=== PATIENT | female | born 1970 | race Caucasian/White ===

== ENCOUNTER 2020-12-02 11:56 | Inpatient (IN) ==
[2020-12-02] MEDS ORDERED: SODIUM CHLORIDE 0.9% 1,000 ML IV STA (13:03)
[2020-12-02 13:39] LABS: Hematocrit 44.2 VOL% (35.7-47.0); Hemoglobin 14.1 GM/DL (12.0-16.0); Lymphocytes # 0.3 10*3/uL (1.4-4.0); Lymphocytes % 18.7 % (21.3-54.2); Mean Corpuscular HGB Conc 31.9 GM/DL (32-36); Mean Corpuscular Volume 85.8 FL (87-102); Mean Platelet Volume 10.3 FL (9.6-12.0); Neutrophils % 72.3 % (38.7-73.9); Platelet Count 105 T/CUMM (130-400); Red Blood Count 5.15 MC/CUMM (3.8-5.5); Red Cell Distribution Width 13.6 % (9.3-17.3); White Blood Count 1.7 T/CUMM (4-12)
[2020-12-02 14:06] LABS: Albumin 3.6 G/DL (3.4-5.0); Bilirubin,Total 0.4 MG/DL (0.20-1.00); Calcium 8.4 MG/DL (8.5-10.1); Ferritin 424.5 ng/ml (8-252); Potassium 3.7 MMOL/L (3.5-5.1); Total Protein 7.7 G/DL (6.4-8.2)
[2020-12-02 14:49] LABS: Bacteria,Urine Occasional /HPF (Few); Bilirubin,Urine Negative (Negative); Blood, Urine Small mg/dL (Negative); Glucose,Urine (UA) Negative (Negative); Ketones,Urine Negative (Negative); Nitrite,Urine Negative (Negative); Protein,Urine Negative; RBC,Urine 2 /HPF (0-4); Squamous Epithelial Cell,Urine Occasional /HPF (0-10); Urine Appearance CLEAR (Clear); Urine Color Yellow (Yellow); Urine Specific Gravity 1.005 (1.001-1.035); Urine Urobilinogen < 2.0 EU/DL (0.2-1.0)
[2020-12-02] MEDS ORDERED: ONDANSETRON 4 MG/2 ML VIAL IV PRN (15:09)
[2020-12-02] MEDS: AZITHROMYCIN INJ 500 MG in SODIUM CHLORIDE 0.9% 250 ML IV SCH (18:08)
[2020-12-02] MEDS: ENOXAPARIN 40 MG/0.4 ML SYRINGE SUBCUT SCH (18:09)
[2020-12-02] MEDS: ACETAMINOPHEN 325 MG TABLET PO PRN (18:10)
[2020-12-02] MEDS: FAMOTIDINE 20 MG TABLET PO SCH (20:55)
[2020-12-02] MEDS: DOCUSATE SODIUM 100 MG CAPSULE PO SCH (20:55)
[2020-12-02] MEDS ORDERED: CITALOPRAM 20 MG TABLET PO SCH (21:00)
[2020-12-03] MEDS: THYROID 60 MG TABLET PO SCH (06:19)
[2020-12-03] MEDS: ENOXAPARIN 40 MG/0.4 ML SYRINGE SUBCUT SCH ×2 (06:19→18:51)
[2020-12-03 06:44] LABS: Basophils % 0.6 % (0.0-0.8); Hematocrit 40.4 VOL% (35.7-47.0); Hemoglobin 12.8 GM/DL (12.0-16.0); Lymphocytes # 0.6 10*3/uL (1.4-4.0); Mean Corpuscular HGB Conc 31.7 GM/DL (32-36); Mean Corpuscular Volume 86.1 FL (87-102); Mean Platelet Volume 10.8 FL (9.6-12.0); Neutrophils % 53.4 % (38.7-73.9); Platelet Count 95 T/CUMM (130-400); Red Blood Count 4.69 MC/CUMM (3.8-5.5); Red Cell Distribution Width 13.7 % (9.3-17.3); White Blood Count 1.6 T/CUMM (4-12)
[2020-12-03 07:13] LABS: Albumin 3.1 G/DL (3.4-5.0); Bilirubin,Total 0.5 MG/DL (0.20-1.00); Calcium 8.1 MG/DL (8.5-10.1); Osmolality,Calculated 271.7 MOS/KG (273-304); Potassium 3.9 MMOL/L (3.5-5.1); Total Protein 6.8 G/DL (6.4-8.2)
[2020-12-03 07:19] LABS: Band Neutrophils 2 % (0-10); Lymphocytes 36 % (20-55); Platelet Estimate Decreased; Segmented Neutrophils 52 % (50-85); Total Cells Counted 100
[2020-12-03 07:20] LABS: Atypical Lymphocytes Few; Reactive Lymphocytes Few
[2020-12-03] MEDS: DOCUSATE SODIUM 100 MG CAPSULE PO SCH ×2 (08:15→21:08)
[2020-12-03] MEDS: FAMOTIDINE 20 MG TABLET PO SCH ×2 (08:21→21:07)
[2020-12-03] MEDS: CETIRIZINE 10 MG TABLET PO SCH (08:21)
[2020-12-03] MEDS ORDERED: PANTOPRAZOLE 40 MG TABLET PO SCH (09:00)
[2020-12-03] MEDS ORDERED: ALBUTEROL 2.5 MG/3 ML NEB RESP TX SCH (11:00)
[2020-12-03] MEDS: OSELTAMIVIR 75 MG CAPSULE PO SCH ×2 (11:29→21:08)
[2020-12-03] MEDS: BENZONATATE 100 MG CAPSULE PO PRN (15:40)
[2020-12-03] MEDS: ACETAMINOPHEN 325 MG TABLET PO PRN (15:40)
[2020-12-03] MEDS: DEXAMETHASONE 4 MG/1 ML VIAL IV SCH (16:32)
[2020-12-03] MEDS: CITALOPRAM 20 MG TABLET PO SCH (16:32)
[2020-12-03] MEDS: ALBUTEROL INHALER 18 GM INH SCH ×2 (18:49→21:07)
[2020-12-03] MEDS: AZITHROMYCIN INJ 500 MG in SODIUM CHLORIDE 0.9% 250 ML IV SCH (18:50)
[2020-12-04] MEDS: ALBUTEROL INHALER 18 GM INH SCH ×4 (00:30→21:14)
[2020-12-04 05:16] LABS: Hematocrit 40.7 VOL% (35.7-47.0); Hemoglobin 13.1 GM/DL (12.0-16.0); Lymphocytes # 0.3 10*3/uL (1.4-4.0); Lymphocytes % 23.1 % (21.3-54.2); Mean Corpuscular HGB Conc 32.2 GM/DL (32-36); Mean Corpuscular Volume 85.7 FL (87-102); Mean Platelet Volume 10.5 FL (9.6-12.0); Monocytes % 10.5 % (1.7-12.7); Neutrophils % 66.4 % (38.7-73.9); Platelet Count 103 T/CUMM (130-400); Red Blood Count 4.75 MC/CUMM (3.8-5.5); Red Cell Distribution Width 13.4 % (9.3-17.3); White Blood Count 1.4 T/CUMM (4-12)
[2020-12-04 05:34] LABS: Calcium 8.3 MG/DL (8.5-10.1); Osmolality,Calculated 274.7 MOS/KG (273-304); Potassium 4.2 MMOL/L (3.5-5.1)
[2020-12-04 05:44] LABS: Hypochromasia Slight
[2020-12-04 05:45] LABS: Microcytosis 1+; Platelet Estimate Decreased
[2020-12-04] MEDS: ENOXAPARIN 40 MG/0.4 ML SYRINGE SUBCUT SCH ×2 (06:09→17:45)
[2020-12-04] MEDS: THYROID 60 MG TABLET PO SCH (06:09)
[2020-12-04] MEDS: DEXAMETHASONE 4 MG/1 ML VIAL IV SCH (08:40)
[2020-12-04] MEDS: OSELTAMIVIR 75 MG CAPSULE PO SCH ×2 (08:41→21:14)
[2020-12-04] MEDS: CETIRIZINE 10 MG TABLET PO SCH (08:41)
[2020-12-04] MEDS: FAMOTIDINE 20 MG TABLET PO SCH ×2 (08:41→21:14)
[2020-12-04] MEDS: DOCUSATE SODIUM 100 MG CAPSULE PO SCH ×2 (09:40→21:15)
[2020-12-04] MEDS ORDERED: REMDESIVIR 200 MG in SODIUM CHLORIDE 0.9% 210 ML IV ONE (10:30)
[2020-12-04] MEDS: ACETAMINOPHEN 325 MG TABLET PO PRN (15:18)
[2020-12-04] MEDS: CITALOPRAM 20 MG TABLET PO SCH (15:18)
[2020-12-04] MEDS: AZITHROMYCIN INJ 500 MG in SODIUM CHLORIDE 0.9% 250 ML IV SCH (17:45)
[2020-12-04] MEDS: BENZONATATE 100 MG CAPSULE PO PRN (21:14)
[2020-12-05] MEDS: ACETAMINOPHEN 325 MG TABLET PO PRN ×2 (00:40→05:58)
[2020-12-05] MEDS: ALBUTEROL INHALER 18 GM INH SCH ×4 (02:30→20:52)
[2020-12-05] MEDS: ENOXAPARIN 40 MG/0.4 ML SYRINGE SUBCUT SCH ×2 (05:59→17:37)
[2020-12-05] MEDS: THYROID 60 MG TABLET PO SCH (05:59)
[2020-12-05 06:01] LABS: Basophils % 0.3 % (0.0-0.8); Hematocrit 39.2 VOL% (35.7-47.0); Hemoglobin 12.8 GM/DL (12.0-16.0); Immature Granulocytes % 0.3 %; Immature Granulocytes Absolute 0.01 #; Lymphocytes # 0.5 10*3/uL (1.4-4.0); Lymphocytes % 15.2 % (21.3-54.2); Mean Corpuscular HGB Conc 32.7 GM/DL (32-36); Mean Corpuscular Volume 84.7 FL (87-102); Mean Platelet Volume 10.4 FL (9.6-12.0); Monocytes % 4.5 % (1.7-12.7); Neutrophils % 79.7 % (38.7-73.9); Platelet Count 105 T/CUMM (130-400); Red Blood Count 4.63 MC/CUMM (3.8-5.5); Red Cell Distribution Width 13.5 % (9.3-17.3); White Blood Count 3.6 T/CUMM (4-12)
[2020-12-05 06:31] LABS: Hypochromasia 1+; Microcytosis 1+; Platelet Estimate Decreased
[2020-12-05 06:35] LABS: Albumin 2.9 G/DL (3.4-5.0); Bilirubin,Total 0.8 MG/DL (0.20-1.00); Osmolality,Calculated 275.5 MOS/KG (273-304); Potassium 3.6 MMOL/L (3.5-5.1); Total Protein 6.7 G/DL (6.4-8.2)
[2020-12-05] MEDS: REMDESIVIR 100 MG in SODIUM CHLORIDE 0.9% 100 ML IV SCH (09:38)
[2020-12-05] MEDS: OSELTAMIVIR 75 MG CAPSULE PO SCH ×2 (09:38→20:52)
[2020-12-05] MEDS: CETIRIZINE 10 MG TABLET PO SCH (09:38)
[2020-12-05] MEDS: FAMOTIDINE 20 MG TABLET PO SCH ×2 (09:38→20:52)
[2020-12-05] MEDS: DEXAMETHASONE 4 MG/1 ML VIAL IV SCH (09:39)
[2020-12-05] MEDS: DOCUSATE SODIUM 100 MG CAPSULE PO SCH ×2 (09:47→21:45)
[2020-12-05] MEDS: CITALOPRAM 20 MG TABLET PO SCH (15:28)
[2020-12-05] MEDS: AZITHROMYCIN INJ 500 MG in SODIUM CHLORIDE 0.9% 250 ML IV SCH (17:36)
[2020-12-06] MEDS: ALBUTEROL INHALER 18 GM INH SCH ×4 (01:40→19:50)
[2020-12-06 06:12] LABS: Hematocrit 38.3 VOL% (35.7-47.0); Hemoglobin 12.5 GM/DL (12.0-16.0); Immature Granulocytes % 0.4 %; Immature Granulocytes Absolute 0.01 #; Lymphocytes # 0.4 10*3/uL (1.4-4.0); Lymphocytes % 17.3 % (21.3-54.2); Mean Corpuscular HGB Conc 32.6 GM/DL (32-36); Mean Corpuscular Volume 84.7 FL (87-102); Monocytes % 10.6 % (1.7-12.7); Neutrophils % 71.7 % (38.7-73.9); Platelet Count 115 T/CUMM (130-400); Red Blood Count 4.52 MC/CUMM (3.8-5.5); Red Cell Distribution Width 13.5 % (9.3-17.3); White Blood Count 2.6 T/CUMM (4-12)
[2020-12-06] MEDS: THYROID 60 MG TABLET PO SCH (06:29)
[2020-12-06] MEDS: ENOXAPARIN 40 MG/0.4 ML SYRINGE SUBCUT SCH ×2 (06:29→18:30)
[2020-12-06 06:32] LABS: Albumin 2.7 G/DL (3.4-5.0); Bilirubin,Total 0.4 MG/DL (0.20-1.00); Calcium 8.1 MG/DL (8.5-10.1); Osmolality,Calculated 275.5 MOS/KG (273-304); Potassium 3.8 MMOL/L (3.5-5.1); Total Protein 6.6 G/DL (6.4-8.2)
[2020-12-06 06:33] LABS: Hypochromasia Slight; Microcytosis Slight
[2020-12-06] MEDS: DOCUSATE SODIUM 100 MG CAPSULE PO SCH ×2 (09:26→23:01)
[2020-12-06] MEDS: DEXAMETHASONE 4 MG/1 ML VIAL IV SCH (09:26)
[2020-12-06] MEDS: OSELTAMIVIR 75 MG CAPSULE PO SCH ×2 (09:27→21:05)
[2020-12-06] MEDS: CETIRIZINE 10 MG TABLET PO SCH (09:27)
[2020-12-06] MEDS: BENZONATATE 100 MG CAPSULE PO PRN (09:27)
[2020-12-06] MEDS: FAMOTIDINE 20 MG TABLET PO SCH ×2 (09:32→21:05)
[2020-12-06] MEDS: REMDESIVIR 100 MG in SODIUM CHLORIDE 0.9% 100 ML IV SCH (11:24)
[2020-12-06] MEDS ORDERED: DEXTROMETHORPHAN ER 6 MG/ML 90 ML/BOTTLE PO PRN (12:52)
[2020-12-06] MEDS: CITALOPRAM 20 MG TABLET PO SCH (16:26)
[2020-12-06] MEDS: AZITHROMYCIN INJ 500 MG in SODIUM CHLORIDE 0.9% 250 ML IV SCH (18:30)
[2020-12-07] MEDS: ALBUTEROL INHALER 18 GM INH SCH ×4 (01:16→18:50)
[2020-12-07 04:07] LABS: Hematocrit 39.1 VOL% (35.7-47.0); Hemoglobin 12.5 GM/DL (12.0-16.0); Immature Granulocytes % 0.3 %; Immature Granulocytes Absolute 0.01 #; Lymphocytes # 0.5 10*3/uL (1.4-4.0); Lymphocytes % 16.3 % (21.3-54.2); Mean Platelet Volume 9.7 FL (9.6-12.0); Monocytes % 10.4 % (1.7-12.7); Platelet Count 150 T/CUMM (130-400); Red Cell Distribution Width 13.2 % (9.3-17.3); White Blood Count 2.9 T/CUMM (4-12)
[2020-12-07 04:36] LABS: Albumin 2.7 G/DL (3.4-5.0); Bilirubin,Total 0.5 MG/DL (0.20-1.00); Calcium 8.1 MG/DL (8.5-10.1); Osmolality,Calculated 279.4 MOS/KG (273-304); Potassium 3.6 MMOL/L (3.5-5.1); Total Protein 6.5 G/DL (6.4-8.2)
[2020-12-07] MEDS: THYROID 60 MG TABLET PO SCH (06:00)
[2020-12-07] MEDS: ENOXAPARIN 40 MG/0.4 ML SYRINGE SUBCUT SCH ×2 (06:00→17:30)
[2020-12-07] MEDS: CETIRIZINE 10 MG TABLET PO SCH ×2 (08:41→09:47)
[2020-12-07] MEDS: DOCUSATE SODIUM 100 MG CAPSULE PO SCH ×3 (08:41→21:24)
[2020-12-07] MEDS: OSELTAMIVIR 75 MG CAPSULE PO SCH ×3 (08:41→21:19)
[2020-12-07] MEDS: FAMOTIDINE 20 MG TABLET PO SCH ×3 (08:41→21:19)
[2020-12-07] MEDS: DEXAMETHASONE 4 MG/1 ML VIAL IV SCH ×2 (08:42→09:47)
[2020-12-07] MEDS: BENZONATATE 100 MG CAPSULE PO PRN ×2 (08:45→22:22)
[2020-12-07] MEDS: REMDESIVIR 100 MG in SODIUM CHLORIDE 0.9% 100 ML IV SCH (10:12)
[2020-12-07] MEDS: CITALOPRAM 20 MG TABLET PO SCH (16:05)
[2020-12-07] MEDS: cefTRIAXone 1,000 MG in SODIUM CHLORIDE 0.9% 100 ML IV SCH (17:00)
[2020-12-07] MEDS: AZITHROMYCIN INJ 500 MG in SODIUM CHLORIDE 0.9% 250 ML IV SCH (17:30)
[2020-12-08] MEDS: ALBUTEROL INHALER 18 GM INH SCH ×5 (01:10→18:18)
[2020-12-08 05:49] LABS: Eosinophils % 0.5 % (0.00-10.9); Hematocrit 39.1 VOL% (35.7-47.0); Hemoglobin 12.9 GM/DL (12.0-16.0); Immature Granulocytes % 0.3 %; Immature Granulocytes Absolute 0.01 #; Lymphocytes # 0.6 10*3/uL (1.4-4.0); Lymphocytes % 16.3 % (21.3-54.2); Mean Corpuscular Volume 83.9 FL (87-102); Mean Platelet Volume 9.8 FL (9.6-12.0); Monocytes % 11.2 % (1.7-12.7); Neutrophils % 71.7 % (38.7-73.9); Platelet Count 189 T/CUMM (130-400); Red Blood Count 4.66 MC/CUMM (3.8-5.5); Red Cell Distribution Width 13.2 % (9.3-17.3); White Blood Count 3.7 T/CUMM (4-12)
[2020-12-08] MEDS: THYROID 60 MG TABLET PO SCH (06:03)
[2020-12-08 06:04] LABS: Albumin 2.6 G/DL (3.4-5.0); Bilirubin,Total 0.6 MG/DL (0.20-1.00); Calcium 8.3 MG/DL (8.5-10.1); Osmolality,Calculated 272.8 MOS/KG (273-304); Potassium 3.6 MMOL/L (3.5-5.1); Total Protein 6.4 G/DL (6.4-8.2)
[2020-12-08] MEDS: ENOXAPARIN 40 MG/0.4 ML SYRINGE SUBCUT SCH ×3 (06:04→18:17)
[2020-12-08 06:40] LABS: Anisocytosis 1+; Platelet Estimate Normal
[2020-12-08] MEDS: DOCUSATE SODIUM 100 MG CAPSULE PO SCH ×2 (09:27→22:18)
[2020-12-08] MEDS: CETIRIZINE 10 MG TABLET PO SCH (09:28)
[2020-12-08] MEDS: FAMOTIDINE 20 MG TABLET PO SCH ×2 (09:28→21:18)
[2020-12-08] MEDS: OSELTAMIVIR 75 MG CAPSULE PO SCH ×2 (09:28→21:18)
[2020-12-08] MEDS: DEXAMETHASONE 4 MG/1 ML VIAL IV SCH (09:30)
[2020-12-08] MEDS: BENZONATATE 100 MG CAPSULE PO PRN (09:34)
[2020-12-08] MEDS: CITALOPRAM 20 MG TABLET PO SCH (17:28)
[2020-12-08] MEDS: cefTRIAXone 1,000 MG in SODIUM CHLORIDE 0.9% 100 ML IV SCH (17:29)
[2020-12-08] MEDS: AZITHROMYCIN INJ 500 MG in SODIUM CHLORIDE 0.9% 250 ML IV SCH (17:37)
[2020-12-09] MEDS: ALBUTEROL INHALER 18 GM INH SCH ×4 (00:05→18:20)
[2020-12-09 05:02] LABS: Basophils % 0.2 % (0.0-0.8); Eosinophils % 0.5 % (0.00-10.9); Hematocrit 38.5 VOL% (35.7-47.0); Hemoglobin 12.8 GM/DL (12.0-16.0); Immature Granulocytes % 0.7 %; Immature Granulocytes Absolute 0.03 #; Lymphocytes # 0.7 10*3/uL (1.4-4.0); Lymphocytes % 15.6 % (21.3-54.2); Mean Corpuscular HGB Conc 33.2 GM/DL (32-36); Mean Corpuscular Volume 84.1 FL (87-102); Mean Platelet Volume 9.9 FL (9.6-12.0); Monocytes % 12.4 % (1.7-12.7); Neutrophils % 70.6 % (38.7-73.9); Platelet Count 229 T/CUMM (130-400); Red Blood Count 4.58 MC/CUMM (3.8-5.5); Red Cell Distribution Width 13.2 % (9.3-17.3); White Blood Count 4.4 T/CUMM (4-12)
[2020-12-09 05:25] LABS: Albumin 2.7 G/DL (3.4-5.0); Bilirubin,Total 1.1 MG/DL (0.20-1.00); Calcium 8.4 MG/DL (8.5-10.1); Osmolality,Calculated 275.5 MOS/KG (273-304); Potassium 3.8 MMOL/L (3.5-5.1); Total Protein 6.4 G/DL (6.4-8.2)
[2020-12-09 05:48] LABS: Lymphocytes 10 % (20-55); Platelet Estimate Normal; Segmented Neutrophils 82 % (50-85); Total Cells Counted 100
[2020-12-09 06:01] LABS: Hepatitis B Core IgM Quant < 0.05 Index; Hepatitis B Surface Ag Quant < 0.10 Index; Hepatitis B Surface Ag Result Non-Reactive (NonReactive); Hepatitis C Virus Ab Quant 0.06 Index; Hepatitis C Virus Ab Result Non-Reactive (NonReactive)
[2020-12-09] MEDS: THYROID 60 MG TABLET PO SCH (06:23)
[2020-12-09] MEDS: ENOXAPARIN 40 MG/0.4 ML SYRINGE SUBCUT SCH ×2 (06:23→17:38)
[2020-12-09] MEDS: DEXAMETHASONE 4 MG/1 ML VIAL IV SCH (09:47)
[2020-12-09] MEDS: CETIRIZINE 10 MG TABLET PO SCH (09:48)
[2020-12-09] MEDS: FAMOTIDINE 20 MG TABLET PO SCH ×2 (09:48→20:44)
[2020-12-09] MEDS: DOCUSATE SODIUM 100 MG CAPSULE PO SCH ×3 (10:30→21:03)
[2020-12-09] MEDS: BUDESONIDE/FORMOTEROL 160-4.5 INHALER 6 GM INH SCH ×2 (11:11→21:42)
[2020-12-09] MEDS: CITALOPRAM 20 MG TABLET PO SCH (16:14)
[2020-12-09] MEDS: cefTRIAXone 1,000 MG in SODIUM CHLORIDE 0.9% 100 ML IV SCH (16:14)
[2020-12-09] MEDS: AZITHROMYCIN INJ 500 MG in SODIUM CHLORIDE 0.9% 250 ML IV SCH (18:19)
[2020-12-09] MEDS: BENZONATATE 100 MG CAPSULE PO PRN (20:44)
[2020-12-10] MEDS: ALBUTEROL INHALER 18 GM INH SCH ×6 (01:47→18:21)
[2020-12-10 05:18] LABS: Basophils % 0.2 % (0.0-0.8); Eosinophils % 0.9 % (0.00-10.9); Hematocrit 39.4 VOL% (35.7-47.0); Hemoglobin 12.6 GM/DL (12.0-16.0); Immature Granulocytes % 1.6 %; Immature Granulocytes Absolute 0.07 #; Lymphocytes # 0.8 10*3/uL (1.4-4.0); Lymphocytes % 16.8 % (21.3-54.2); Mean Corpuscular Volume 85.3 FL (87-102); Mean Platelet Volume 9.7 FL (9.6-12.0); Monocytes % 13.9 % (1.7-12.7); Neutrophils % 66.6 % (38.7-73.9); Platelet Count 258 T/CUMM (130-400); Red Blood Count 4.62 MC/CUMM (3.8-5.5); Red Cell Distribution Width 13.2 % (9.3-17.3); White Blood Count 4.5 T/CUMM (4-12)
[2020-12-10 05:39] LABS: Albumin 2.6 G/DL (3.4-5.0); Bilirubin,Total 0.8 MG/DL (0.20-1.00); Calcium 8.5 MG/DL (8.5-10.1); Osmolality,Calculated 278.4 MOS/KG (273-304); Potassium 4.1 MMOL/L (3.5-5.1); Total Protein 6.4 G/DL (6.4-8.2)
[2020-12-10 05:47] LABS: Hypochromasia Slight; Microcytosis Slight
[2020-12-10 05:48] LABS: Platelet Estimate Normal
[2020-12-10] MEDS: THYROID 60 MG TABLET PO SCH (06:05)
[2020-12-10] MEDS: ENOXAPARIN 40 MG/0.4 ML SYRINGE SUBCUT SCH ×3 (06:06→17:31)
[2020-12-10] MEDS: FAMOTIDINE 20 MG TABLET PO SCH ×2 (09:08→20:57)
[2020-12-10] MEDS: BENZONATATE 100 MG CAPSULE PO PRN (09:08)
[2020-12-10] MEDS: BUDESONIDE/FORMOTEROL 160-4.5 INHALER 6 GM INH SCH ×2 (09:08→20:58)
[2020-12-10] MEDS: CETIRIZINE 10 MG TABLET PO SCH (09:08)
[2020-12-10] MEDS: DEXAMETHASONE 4 MG/1 ML VIAL IV SCH (09:11)
[2020-12-10] MEDS: DOCUSATE SODIUM 100 MG CAPSULE PO SCH ×2 (09:20→20:57)
[2020-12-10] MEDS ORDERED: ALPRAZolam 0.25 MG TABLET PO PRN (11:10)
[2020-12-10] MEDS: CITALOPRAM 20 MG TABLET PO SCH (11:35)
[2020-12-10] MEDS: cefTRIAXone 1,000 MG in SODIUM CHLORIDE 0.9% 100 ML IV SCH (17:21)
[2020-12-11] MEDS: ALBUTEROL INHALER 18 GM INH SCH ×4 (01:05→21:10)
[2020-12-11] MEDS: THYROID 60 MG TABLET PO SCH (06:03)
[2020-12-11] MEDS: ENOXAPARIN 40 MG/0.4 ML SYRINGE SUBCUT SCH ×2 (06:03→17:44)
[2020-12-11 06:10] LABS: Basophils % 0.2 % (0.0-0.8); Eosinophils # 0.1 10*3/uL (0.0-0.87); Eosinophils % 1.4 % (0.00-10.9); Hematocrit 38.9 VOL% (35.7-47.0); Hemoglobin 12.9 GM/DL (12.0-16.0); Immature Granulocytes % 1.4 %; Immature Granulocytes Absolute 0.07 #; Lymphocytes % 19.6 % (21.3-54.2); Mean Corpuscular HGB Conc 33.2 GM/DL (32-36); Mean Corpuscular Volume 83.7 FL (87-102); Mean Platelet Volume 9.9 FL (9.6-12.0); Monocytes % 12.1 % (1.7-12.7); Neutrophils % 65.3 % (38.7-73.9); Platelet Count 270 T/CUMM (130-400); Red Blood Count 4.65 MC/CUMM (3.8-5.5); Red Cell Distribution Width 13.2 % (9.3-17.3); White Blood Count 5.1 T/CUMM (4-12)
[2020-12-11 06:40] LABS: Albumin 2.6 G/DL (3.4-5.0); Bilirubin,Total 0.7 MG/DL (0.20-1.00); Calcium 8.1 MG/DL (8.5-10.1); Osmolality,Calculated 274.5 MOS/KG (273-304); Potassium 4.1 MMOL/L (3.5-5.1); Total Protein 6.3 G/DL (6.4-8.2)
[2020-12-11 07:43] LABS: Hypochromasia 1+
[2020-12-11 07:44] LABS: Microcytosis 1+; Platelet Estimate Normal
[2020-12-11] MEDS: FAMOTIDINE 20 MG TABLET PO SCH ×2 (09:31→21:10)
[2020-12-11] MEDS: CETIRIZINE 10 MG TABLET PO SCH (09:31)
[2020-12-11] MEDS: DOCUSATE SODIUM 100 MG CAPSULE PO SCH ×2 (09:32→21:10)
[2020-12-11] MEDS: DEXAMETHASONE 4 MG/1 ML VIAL IV SCH (09:32)
[2020-12-11] MEDS: BUDESONIDE/FORMOTEROL 160-4.5 INHALER 6 GM INH SCH ×2 (09:33→21:15)
[2020-12-11] MEDS: CITALOPRAM 20 MG TABLET PO SCH (14:01)
[2020-12-11] MEDS: cefTRIAXone 1,000 MG in SODIUM CHLORIDE 0.9% 100 ML IV SCH (17:43)
[2020-12-12] MEDS: ALBUTEROL INHALER 18 GM INH SCH ×2 (01:15→09:22)
[2020-12-12] MEDS: THYROID 60 MG TABLET PO SCH (06:30)
[2020-12-12] MEDS: ENOXAPARIN 40 MG/0.4 ML SYRINGE SUBCUT SCH (06:30)
[2020-12-12 07:08] LABS: Basophils % 0.2 % (0.0-0.8); Eosinophils # 0.1 10*3/uL (0.0-0.87); Eosinophils % 0.9 % (0.00-10.9); Hematocrit 39.6 VOL% (35.7-47.0); Hemoglobin 12.7 GM/DL (12.0-16.0); Immature Granulocytes % 1.7 %; Lymphocytes # 1.1 10*3/uL (1.4-4.0); Lymphocytes % 18.9 % (21.3-54.2); Mean Corpuscular HGB Conc 32.1 GM/DL (32-36); Mean Corpuscular Volume 85.2 FL (87-102); Mean Platelet Volume 9.7 FL (9.6-12.0); Monocytes % 12.8 % (1.7-12.7); Neutrophils % 65.5 % (38.7-73.9); Platelet Count 286 T/CUMM (130-400); Red Blood Count 4.65 MC/CUMM (3.8-5.5); Red Cell Distribution Width 13.4 % (9.3-17.3); White Blood Count 5.9 T/CUMM (4-12)
[2020-12-12 07:24] LABS: Albumin 2.5 G/DL (3.4-5.0); Bilirubin,Total 0.6 MG/DL (0.20-1.00); Calcium 8.3 MG/DL (8.5-10.1); Osmolality,Calculated 276.4 MOS/KG (273-304); Potassium 3.9 MMOL/L (3.5-5.1)
[2020-12-12 08:17] VITALS: BP 127/83
[2020-12-12 08:33] LABS: Anisocytosis 1+; Band Neutrophils 2 % (0-10); Eosinophils 1 % (0-10); Lymphocytes 20 % (20-55); Platelet Estimate Normal; Segmented Neutrophils 66 % (50-85); Total Cells Counted 100
[2020-12-12] MEDS: CETIRIZINE 10 MG TABLET PO SCH (09:21)
[2020-12-12] MEDS: FAMOTIDINE 20 MG TABLET PO SCH (09:21)
[2020-12-12] MEDS: DOCUSATE SODIUM 100 MG CAPSULE PO SCH ×2 (09:21→09:57)
[2020-12-12] MEDS: DEXAMETHASONE 4 MG/1 ML VIAL IV SCH (09:22)
[2020-12-12] MEDS: BUDESONIDE/FORMOTEROL 160-4.5 INHALER 6 GM INH SCH (09:25)
[2020-12-12] MEDS ORDERED: DOXYCYCLINE HYCLATE 100 MG CAPSULE PO SCH (21:00)
== END 2020-12-12 14:00 | disposition home or self-care (01) | DRG 177 ==
LOC: N.ED 11:56 → N.2E 15:44
PROVIDERS: ADMIT Family Medicine; ATTEND Family Medicine